=== PATIENT | female | born 1965 | race Caucasian/White ===

== ENCOUNTER 2019-02-10 23:21 | Emergency (ER) | payer OTHER ==
[~2019-02-10] VITALS: Ht 167.6 cm; Wt 117.9 kg
== END 2019-02-11 04:08 | disposition home or self-care (01) ==
LOC: ER 23:21
DX: S09.90XA Unspecified injury of head, initial encounter (principal); W10.9XXA Fall (on) (from) unspecified stairs and steps, initial encounter; F17.200 Nicotine dependence, unspecified, uncomplicated
CPT/HCPCS: 70450; 73030; 73562-RT; 73600; 99284-25; A9270; A9270-GY

== ENCOUNTER 2021-04-16 12:28 | Day surgery (SDC) | payer BC ==
[~2021-04-16] VITALS: Ht 167.6 cm; Wt 105.2 kg
[~2021-04-16 12:28] MED LIST: DICL75ER PO; IBUP800 PO
--- NOTE | 2021-04-16 15:36 | NUR ---
04/16/21 1536 Hailey Keller PAIN LEVEL 2/10 READY TO BE DISCHARGED.
== END 2021-04-16 15:46 | disposition home or self-care (01) ==
LOC: ORSCSDS 12:28
PROVIDERS: Podiatrist Foot & Ankle Surgery
PROC: 0SGH04Z Fusion of Right Tarsal Joint with Internal Fixation Device, Open Approach (ICD-10-PCS; principal; 2021-04-16 13:45)
DX: M19.071 Primary osteoarthritis, right ankle and foot (principal); I10 Essential (primary) hypertension; K21.9 Gastro-esophageal reflux disease without esophagitis; E66.01 Morbid (severe) obesity due to excess calories; Z68.37 Body mass index [BMI] 37.0-37.9, adult; Z79.899 Other long term (current) drug therapy
CPT/HCPCS: A9270; C1713; C1769; J0171; J0690; J1885; J2250; J2704; J3010; J7120

== ENCOUNTER 2022-01-17 12:23 | Day surgery (SDC) | payer BC ==
[~2022-01-17] VITALS: Ht 167.6 cm; Wt 99.7 kg
[2022-01-17] MEDS ORDERED: OMEP20ER (12:40)
== END 2022-01-17 14:30 | disposition home or self-care (01) ==
LOC: ORSCSDS 12:23
PROVIDERS: Student in an Organized Health Care Education/Training Program
PROC: 0DBN8ZX Excision of Sigmoid Colon, Via Natural or Artificial Opening Endoscopic, Diagnostic (ICD-10-PCS; principal; 2022-01-17 14:30)
PROC: 0DBM8ZX Excision of Descending Colon, Via Natural or Artificial Opening Endoscopic, Diagnostic (ICD-10-PCS; principal; 2022-01-17 14:30)
PROC: 0DB58ZX Excision of Esophagus, Via Natural or Artificial Opening Endoscopic, Diagnostic (ICD-10-PCS; principal; 2022-01-17 14:30)
PROC: 0DBH8ZX Excision of Cecum, Via Natural or Artificial Opening Endoscopic, Diagnostic (ICD-10-PCS; principal; 2022-01-17 14:30)
PROC: 0DBL8ZX Excision of Transverse Colon, Via Natural or Artificial Opening Endoscopic, Diagnostic (ICD-10-PCS; principal; 2022-01-17 14:30)
PROC: 0DB78ZX Excision of Stomach, Pylorus, Via Natural or Artificial Opening Endoscopic, Diagnostic (ICD-10-PCS; principal; 2022-01-17 14:30)
DX: K21.00 Gastro-esophageal reflux disease with esophagitis, without bleeding (principal); K59.00 Constipation, unspecified; K29.70 Gastritis, unspecified, without bleeding; K44.9 Diaphragmatic hernia without obstruction or gangrene; D12.0 Benign neoplasm of cecum; D12.3 Benign neoplasm of transverse colon; D12.4 Benign neoplasm of descending colon; F17.210 Nicotine dependence, cigarettes, uncomplicated; I10 Essential (primary) hypertension; G47.33 Obstructive sleep apnea (adult) (pediatric); Z79.899 Other long term (current) drug therapy; F41.9 Anxiety disorder, unspecified; E66.9 Obesity, unspecified; Z68.36 Body mass index [BMI] 36.0-36.9, adult
CPT/HCPCS: 88305; 88342; J0330; J0461; J2405; J2704; J7120

== ENCOUNTER → 2024-10-04 | Outpatient (CLI) | payer OTHER ==
[~2024-10-04] MED LIST changes: +ACET500 PO; +ASPI81CH PO; +MELO7.5 PO; +OMEP20ER PO; +OXYC5 PO; +TOCO1000 PO; +VITAMIN B-122000 MC1 PO
== END | disposition home or self-care (01) ==
LOC: LAB 12:14 → LAB SHORT 12:14
DX: M25.572 Pain in left ankle and joints of left foot (principal)
CPT/HCPCS: 84550